=== PATIENT | female | born 1970 | race Caucasian/White ===

== ENCOUNTER 2016-11-04 08:13 | Outpatient (CLI) | payer BC ==
[2016-11-04 08:35] LABS: APPEARANCE,URINE Clear (CLEAR); COLOR,URINE Yellow (YELLOW); OCCULT BLOOD,URINE 3+ (NEGATIVE); UROBILINOGEN URINE 0.2 Eu (0.2-1.0)
[2016-11-04 08:59] LABS: eGFR (African) > 60; eGFR (Non-African) > 60
== END 2016-11-04 08:14 ==
LOC: LAB 08:13
PROVIDERS: ATTEND Family Medicine
DX: Z00.00 Encounter for general adult medical examination without abnormal findings (principal)
CPT/HCPCS: 36415; 80053; 80061; 81002

== ENCOUNTER 2018-07-25 14:55 | Outpatient (CLI) | payer BC ==
[2018-07-25 15:50] LABS: MEAN CORPUSCULAR HEMOGLOBIN 29.6 pg (28.0-34.0); MONOCYTES % 6.5 % (0.0-11.0)
[2018-07-25 15:51] LABS: BASOPHILS % 0.8 (0.0-1.5); EOSINOPHILS % 1.5 % (0.0-6.8); NEUTROPHILS # 11.4 # k/uL (1.4-7.7)
--- NOTE | 2018-07-25 15:53 | Diagnostic Imaging Report ---
STEVE TRINH [facility] [id number] [facility] [address] [address] Report Submission Date: Jul 25, 2018 3:36:14 PM [employer] Patient Study Name: STACIE HANNA Date: Jul 25, 2018 3:21:00 PM [employer] Modality Type: DX Gender: F Description: CHEST 2VIEW : 70 Institution: [facility] Physician: STEVE TRINH Examination: PA and lateral chest. History: Evaluate lung arnold. Comparison exam: None provided. Findings: PA and lateral views of the chest demonstrates a normal cardiac and mediastinal silhouette. No focal infiltrate. No blunting of the costophrenic margins. Osseous structures are appropriate for age. Impression: No acute pulmonary process. Electronically signed on Jul 25, 2018 3:36:14 PM [employer]ER by: Slim MOYER
[2018-07-25 17:04] LABS: eGFR (Non-African) > 60
== END 2018-07-25 14:56 ==
LOC: LAB 14:55
PROVIDERS: ATTEND Family Medicine
DX: R50.9 Fever, unspecified (principal)
CPT/HCPCS: 36415; 71046; 80053; 85025; 87400